=== PATIENT | male | born 1965 | race Hispanic/Latino ===

== ENCOUNTER 2018-08-27 17:58 | Observation (INO) | payer OTHER ==
[2018-08-27] MEDS ORDERED: Sodium Chloride 0.9% 1,000 ML IV STA (18:07)
[2018-08-27] MEDS ORDERED: Morphine 4 MG/ML VIAL IV ONE (18:07)
--- NOTE | 2018-08-27 18:18 | ED PDOC ---
HPI: Chest Pain Time Seen by Provider: 08/27/18 18:06 Chief Complaint (Nursing): Chest Pain Chief Complaint (Provider): Chest Pain, Constipation History Per: Patient History/Exam Limitations: no limitations Onset/Duration Of Symptoms: Intermittent Episodes (x1 month) Current Symptoms Are (Timing): Still Present Additional Complaint(s): 53 year old male presents to the ED for evaluation of acute onset mid-epigastric pain radiating up from his lower abdomen, which he thinks is gas, for the past few hours. Patient notes that he had several episodes of this over the past month which have either spontaneously resolved or were relieved by Pepto-Bismol, last episode last night. Additionally, he reports associated constipation. Otherwise, denies fever, vomiting, cough, shortness of breath, focal weakness, and any other complaints. PMD: unsure of name Past Medical History Reviewed: Historical Data, Nursing Documentation, Vital Signs - Medical History PMH: No Chronic Diseases Other PMH: distant history of TB - Surgical History Surgical History: Cholecystectomy - Family History Family History: States: Unknown Family Hx - Social History Current smoker - smoking cessation education provided: No Alcohol: Social Drugs: Denies - Allergies Allergies/Adverse Reactions: Allergies Allergy/AdvReac Type Severity Reaction Status Date / Time No Known Allergies Allergy Verified 08/27/18 18:03 MELYSSA Risk Score for UA/NSTEMI - MELYSSA Risk Score Age > 64: NO 3 or more CAD Risk Factors: NO Known CAD (Stenosis greater than 50%): NO Aspirin use in past 7 days: NO Severe Angina: NO EKG ST changes greater than 0.5mm: NO Positive Cardiac Marker: NO MELYSSA Score: 0 Risk %: 5% Review of Systems ROS Statement: Except As Marked, All Systems Reviewed And Found Negative Constitutional: Negative for: Fever Cardiovascular: Positive for: Chest Pain (acute mid epigastric pain which radiates up from lower abdomen) Respiratory: Negative for: Cough, Shortness of Breath Gastrointestinal: Positive for: Constipation. Negative for: Vomiting Neurological: Negative for: Weakness Physical Exam - Reviewed Nursing Documentation Reviewed: Yes Vital Signs Reviewed: Yes - Physical Exam Appears: Positive for: Uncomfortable Head Exam: Positive for: ATRAUMATIC, NORMOCEPHALIC Skin: Positive for: Normal Color, Warm. Negative for: Rash Eye Exam: Positive for: Normal appearance, EOMI, PERRL ENT: Positive for: Normal ENT Inspection Neck: Positive for: Normal, Painless ROM, Supple Cardiovascular/Chest: Positive for: Regular Rate, Rhythm, Chest Non Tender Respiratory: Positive for: Normal Breath Sounds. Negative for: Accessory Muscle Use, Respiratory Distress Gastrointestinal/Abdominal: Positive for: Normal Exam, Bowel Sounds, Soft. Negative for: Tenderness (mild midepigastric tenderness), Mass, Distended, Guarding, Rebound Back: Positive for: Normal Inspection Extremity: Positive for: Normal ROM (all extremities) Neurological/Psych: Positive for: Awake, Alert, Oriented (x3). Negative for: Motor/Sensory Deficits - Laboratory Results Result Diagrams: 08/27/18 18:36 08/27/18 18:36 Medical Decision Making Medical Decision Making: Time: 1806 Initial Impression: acute onset of chest and abdominal pain rule out gastritis, constipation, small bowel obstruction Initial Plan: --EKG --CMP --Lipase --Trop I --CBC with differential --CXR --Morphine 4mg IV --Normal saline IV --Pepcid 20mg IVP --Reevaluate Accucheck: [id number] CXR FINDINGS: LUNGS: The lungs are well inflated and clear. PLEURA: No right pleural effusions or pneumothorax. There blunting of the left costophrenic angle. CARDIOVASCULAR: The heart is normal in size. No aortic atherosclerotic calcifications present. OSSEOUS STRUCTURES: Within normal limits for the patient's age. VISUALIZED UPPER ABDOMEN: Normal. OTHER FINDINGS: None. IMPRESSION: No active pulmonary disease. Suspect small left pleural effusion versus pleural thickening. CT FINDINGS: LUNG BASES: The lung bases appear clear. No pleural effusions are seen. LIVER: Unremarkable. GALLBLADDER AND BILE DUCTS: Status post cholecystectomy. There is choledocholithiasis identified in the common bile duct; with the largest choledocholith measuring 1.5 cm. No biliary ductal dilatation is evident. PANCREAS: Unremarkable. SPLEEN: Unremarkable. ADRENAL GLANDS: Unremarkable. KIDNEYS, URETERS, AND BLADDER: The kidneys appear within normal limits. There is no hydronephrosis or hydroureter. No urinary calculi are seen. The urinary bladder appeared normal in size and configuration. STOMACH AND BOWEL: Unremarkable appearance of the stomach and bowel. No evidence of bowel obstruction. No evidence suggesting enteritis or colitis. There is mild diverticulosis coli seen in the sigmoid region without evidence of acute diverticulitis. APPENDIX: No evidence of acute appendicitis on CT examination. PERITONEUM: No free fluid. No free air. LYMPH NODES: No lymphadenopathy is evident. REPRODUCTIVE: The seminal vesicles appeared normal and symmetrical in size. There is prostatic hypertrophy noted. The prostate gland measured 5.5 cm transversely. VASCULATURE: No evidence of abdominal aortic aneurysm. BONES: No aggressive appearing osseous lesion. No acute osseous pathology evident. IMPRESSION: 1. Status post cholecystectomy. 2. Choledocholithiasis is identified as described above. 3. Prostatic hypertrophy. 4. Diverticulosis coli of the sigmoid colon. No acute diverticulitis identified. 2206 Discussed results with patient and answered all questions. Additional pain meds ordered to alleviate symptoms. Dr. Valdovinos pageelpidio. [address] Valdovinos who is director of solutions architecture (pts is in [place])_who is agreeable for admission with a hepatobiliary GI consult dr dominguez. pt agreeable to plan for admission. Scribe Attestation: Documented by Lara Zuluaga, acting as a scribe for Jefry Dhillon MD. Provider Scribe Attestation: All medical record entries made by the Scribe were at my direction and personally dictated by me. I have reviewed the chart and agree that the record accurately reflects my personal performance of the history, physical exam, medical decision making, and the department course for this patient. I have also personally directed, reviewed, and agree with the discharge instructions and disposition. Disposition - Clinical Impression Clinical Impression: Chest pain, Abdominal pain - Patient ED Disposition Is Patient to be Admitted: Yes Counseled Patient/Family Regarding: Studies Performed, Diagnosis - Disposition Disposition Time: 22:05 Condition: STABLE
--- NOTE | 2018-08-27 18:41 | RAD ---
Date of service: 08/27/2018 HISTORY: chest pain COMPARISON: No prior. FINDINGS: LUNGS: The lungs are well inflated and clear. PLEURA: No right pleural effusions or pneumothorax. There blunting of the left costophrenic angle. CARDIOVASCULAR: The heart is normal in size. No aortic atherosclerotic calcifications present. OSSEOUS STRUCTURES: Within normal limits for the patient's age. VISUALIZED UPPER ABDOMEN: Normal. OTHER FINDINGS: None. IMPRESSION: No active pulmonary disease. Suspect small left pleural effusion versus pleural thickening.
[2018-08-27] MEDS ORDERED: Morphine 4 MG/ML VIAL ONE (18:51)
[2018-08-27 19:07] LABS: BASO % 0.3 % (0.0-2.0); EOS # 0.1 K/uL (0.0-0.7); EOS % 0.5 % (0.0-4.0); HEMOGLOBIN 16.3 g/dL (12.0-18.0); LYMPH # 1.3 K/uL (1.0-4.3); LYMPH % 9.6 % (20.0-40.0); MEAN CELL VOLUME 89.1 fl (80.0-94.0); MEAN CORPUSCULAR HEMOGLOBIN 29.7 pg (27.0-31.0); MEAN CORPUSCULAR HGB CONC 33.3 g/dL (33.0-37.0); MEAN PLATELET VOLUME 9.5 fl (7.2-11.7); MONO # 0.9 K/uL (0.0-0.8); MONO % 6.2 % (0.0-10.0); NEUT # 11.5 K/uL (1.8-7.0); NEUT % 83.4 % (50.0-75.0); NRBC % 0.1 % (0.0-0.0); PLATELET COUNT 172 K/uL (130-400); RBC 5.47 Mil/uL (4.40-5.90); RED CELL DISTRIBUTION WIDTH 12.6 % (11.5-14.5); WHITE BLOOD COUNT 13.8 K/uL (4.8-10.8)
[2018-08-27 19:09] LABS: ALB/GLOB RATIO 1.5 (1.0-2.1); ALBUMIN 4.4 g/dL (3.5-5.0); ALT/SGPT 72 U/L (21-72); AST/SGOT 110 U/L (17-59); BLOOD UREA NITROGEN 17 mg/dl (9-20); CALCIUM 9.7 mg/dL (8.4-10.2); GFR NON-AFRICAN AMERICAN > 60; LIPASE 183 U/L (23-300)
[2018-08-27] MEDS ORDERED: Iohexol 300 100 ML IJ ONE (19:41)
[2018-08-27 19:54] LABS: BANDS 2 % (0-2); LYMPHOCYTE 7 % (20-50); MONOCYTE 3 % (0-10); NEUTROPHIL 88 % (42-75); TOTAL CELLS COUNTED 100
[2018-08-27 19:55] LABS: PLATELET ESTIMATE NORMAL (NORMAL)
[2018-08-28] MEDS ORDERED: HYDROmorphone 0.5 mg/0.5 ml ISec IVP PRN (04:31)
--- NOTE | 2018-08-28 04:33 | CP.PCM.CON ---
<MineshleifNick lockett - Last Filed: 08/28/18 07:15> History of Present Illness - History of Present Illness History of Present Illness: [facility] Surgery Consult Note for Dr. Jensen Reason for consult: choledolcholithiasis 53M with PMH of laparoscopic cholecystectomy and ERCP with stent presents to [facility] for complaint of abd pain. Patient was seen and evaluated in the ED. Patient states pain began about 2 days ago. He states that it was intially related to food. Denies fever/chills or vomiting but admits to nausea. Patient had lap uri 12 years ago in [place]. prior to the procedure, he had ERCP with stent placement. A few years later, patient reports to having abd pain and an "infection." He received abx and it resolved. he has had intermittent episodes in the past. He rate pain as moderate located in epigastrium. He tried pepto-bismol which provided minimal relief. Patient has no other complaint at this time. 12 point ROS was performed and negative unless otherwise stated. PMH: cholecystitis, choelithiasis PSH: ERCp with stent, lap uri ALL: NKDA Review of Systems - Review of Systems All systems: reviewed and no additional remarkable complaints except (as per HPI) Past Patient History - Past Social History Alcohol: Social Drugs: Denies - PSYCHIATRIC Hx Substance Use: No - SURGICAL HISTORY Hx Cholecystectomy: Yes - ANESTHESIA Hx Anesthesia: Yes Meds Allergies/Adverse Reactions: Allergies Allergy/AdvReac Type Severity Reaction Status Date / Time No Known Allergies Allergy Verified 08/27/18 18:03 - Medications Medications: Current Medications Hydromorphone HCl (Dilaudid) 0.5 mg IVP Q3H PRN PRN Reason: Pain, severe (8-10) Lactated Ringer's (Lactated Ringer's) 1,000 mls @ 130 mls/hr IV .Q7H42M JOB Ketorolac Tromethamine (Toradol) 15 mg IVP Q6 PRN PRN Reason: Pain, moderate (4-7) Ondansetron HCl (Zofran Inj) 4 mg IVP Q6 PRN PRN Reason: Nausea/Vomiting Pantoprazole Sodium (Protonix Inj) 40 mg IVP DAILY JOB Physical Exam - Constitutional Appears: No Acute Distress - Head Exam Head Exam: ATRAUMATIC, NORMOCEPHALIC - Eye Exam Eye Exam: EOMI, Normal appearance. absent: Scleral icterus Pupil Exam: PERRL - ENT Exam ENT Exam: Mucous Membranes Moist - Respiratory Exam Respiratory Exam: NORMAL BREATHING PATTERN - Cardiovascular Exam Cardiovascular Exam: REGULAR RHYTHM - GI/Abdominal Exam GI & Abdominal Exam: Normal Bowel Sounds, Soft, Tenderness (epigastrium). absent: Distended, Firm, Guarding, Hernia, Rebound, Rigid - Extremities Exam Extremities exam: Positive for: normal capillary refill, pedal pulses present - Back Exam Back exam: absent: CVA tenderness (L), CVA tenderness (R) - Neurological Exam Neurological exam: Alert, CN II-XII Intact, Oriented x3 - Psychiatric Exam Psychiatric exam: Normal Affect, Normal Mood - Skin Skin Exam: Dry, Intact, Normal Color, Warm Results - Vital Signs Recent Vital Signs: Last Vital Signs Temp 98.3 F 08/28/18 01:14 Pulse 96 H 08/28/18 01:14 Resp 17 08/28/18 01:14 BP 142/78 08/28/18 01:14 Pulse Ox 96 08/28/18 01:14 - Labs Result Diagrams: 08/28/18 06:18 08/28/18 06:18 Labs: Laboratory Results - last 24 hr 08/27/18 08/27/18 08/27/18 18:02 18:36 18:36 WBC 13.8 H RBC 5.47 Hgb 16.3 Hct 48.7 MCV 89.1 MCH 29.7 MCHC 33.3 RDW 12.6 Plt Count 172 MPV 9.5 Neut % (Auto) 83.4 H Lymph % (Auto) 9.6 L Berks % (Auto) 6.2 Eos % (Auto) 0.5 Baso % (Auto) 0.3 Neut # (Auto) 11.5 H Lymph # (Auto) 1.3 Berks # (Auto) 0.9 H Eos # (Auto) 0.1 Baso # (Auto) 0.0 Neutrophils % (Manual) 88 H Band Neutrophils % 2 Lymphocytes % (Manual) 7 L Monocytes % (Manual) 3 Platelet Estimate Normal Sodium 135 Potassium 3.7 Chloride 100 Carbon Dioxide 21 L Anion Gap 18 BUN 17 Creatinine 0.7 L Est GFR ( Amer) > 60 Est GFR (Non-Af Amer) > 60 POC Glucose (mg/dL) 139 H Random Glucose 144 H Calcium 9.7 Total Bilirubin 2.1 H AST 110 H ALT 72 Alkaline Phosphatase 85 Troponin I < 0.0120 Total Protein 7.4 Albumin 4.4 Globulin 3.0 Albumin/Globulin Ratio 1.5 Lipase 183 Assessment & Plan - Assessment and Plan (Free Text) Assessment: 53M with abd pain and CT findings suggestive of choledolcholithiasis Plan: -NPO -recommend GI consult -patient will need ERCP -IVF -pain control -anti-emetics prn -Further recommendations as per Dr. Haynes PGY2 - Date & Time Date: 08/28/18 Time: 03:35 <Dany Chanel - Last Filed: 08/28/18 09:08> Meds - Medications Medications: Current Medications Hydromorphone HCl (Dilaudid) 0.5 mg IVP Q3H PRN PRN Reason: Pain, severe (8-10) Lactated Ringer's (Lactated Ringer's) 1,000 mls @ 130 mls/hr IV .Q7H42M JOB Last Admin: 08/28/18 07:25 Dose: 130 mls/hr Ketorolac Tromethamine (Toradol) 15 mg IVP Q6 PRN PRN Reason: Pain, moderate (4-7) Ondansetron HCl (Zofran Inj) 4 mg IVP Q6 PRN PRN Reason: Nausea/Vomiting Pantoprazole Sodium (Protonix Inj) 40 mg IVP DAILY JOB Results - Vital Signs Recent Vital Signs: Last Vital Signs Temp 98.3 F 08/28/18 01:14 Pulse 96 H 08/28/18 01:14 Resp 17 08/28/18 01:14 BP 142/78 08/28/18 01:14 Pulse Ox 96 08/28/18 01:14 - Labs Result Diagrams: 08/28/18 06:18 08/28/18 06:18 Labs: Laboratory Results - last 24 hr 08/27/18 08/27/18 08/27/18 18:02 18:36 18:36 WBC 13.8 H RBC 5.47 Hgb 16.3 Hct 48.7 MCV 89.1 MCH 29.7 MCHC 33.3 RDW 12.6 Plt Count 172 MPV 9.5 Neut % (Auto) 83.4 H Lymph % (Auto) 9.6 L Berks % (Auto) 6.2 Eos % (Auto) 0.5 Baso % (Auto) 0.3 Neut # (Auto) 11.5 H Lymph # (Auto) 1.3 Berks # (Auto) 0.9 H Eos # (Auto) 0.1 Baso # (Auto) 0.0 Neutrophils % (Manual) 88 H Band Neutrophils % 2 Lymphocytes % (Manual) 7 L Monocytes % (Manual) 3 Platelet Estimate Normal Sodium 135 Potassium 3.7 Chloride 100 Carbon Dioxide 21 L Anion Gap 18 BUN 17 Creatinine 0.7 L Est GFR ( Amer) > 60 Est GFR (Non-Af Amer) > 60 POC Glucose (mg/dL) 139 H Random Glucose 144 H Calcium 9.7 Phosphorus Magnesium Total Bilirubin 2.1 H AST 110 H ALT 72 Alkaline Phosphatase 85 Troponin I < 0.0120 Total Protein 7.4 Albumin 4.4 Globulin 3.0 Albumin/Globulin Ratio 1.5 Lipase 183 08/28/18 08/28/18 06:18 06:18 WBC 13.5 H RBC 5.18 Hgb 15.8 Hct 45.2 MCV 87.4 MCH 30.6 MCHC 35.0 RDW 12.1 Plt Count 155 MPV 8.8 Neut % (Auto) 85.6 H Lymph % (Auto) 6.1 L Berks % (Auto) 7.4 Eos % (Auto) 0.5 Baso % (Auto) 0.4 Neut # (Auto) 11.6 H Lymph # (Auto) 0.8 L [place] # (Auto) 1.0 H Eos # (Auto) 0.1 Baso # (Auto) 0.0 Neutrophils % (Manual) Band Neutrophils % Lymphocytes % (Manual) Monocytes % (Manual) Platelet Estimate Sodium 134 Potassium 4.0 Chloride 99 Carbon Dioxide 28 Anion Gap 11 BUN 14 Creatinine 0.8 Est GFR ( Amer) > 60 Est GFR (Non-Af Amer) > 60 POC Glucose (mg/dL) Random Glucose 115 H Calcium 9.3 Phosphorus 3.2 Magnesium 2.0 Total Bilirubin 3.9 H AST 196 H D ALT 199 H D Alkaline Phosphatase 97 Troponin I Total Protein 6.9 Albumin 4.1 Globulin 2.7 Albumin/Globulin Ratio 1.5 Lipase Assessment & Plan - Assessment and Plan (Free Text) Plan: All medical record entries made by the resident were at my direction. I have reviewed the chart and agree that the record accurately reflects my personal pe rformance of the history, physical exam, and medical decision making. Patient post laparoscopic cholecystectomy, now with choledocholithiasis. Common duct measures 19 mm with 2-3 retained stones. Patient should undergo ERCP and attempted removal of stones. If unsuccessful, can perform laparoscopic common duct exploration with choledochoscopy. Question becomes whether patient will need choledochoduodenostomy, if there is a distal stricture.
[2018-08-28] MEDS ORDERED: Lactated Ringer's 1,000 ML IV SCH (04:45)
[2018-08-28 06:21] LABS: BASO % 0.4 % (0.0-2.0); EOS # 0.1 K/uL (0.0-0.7); EOS % 0.5 % (0.0-4.0); HEMOGLOBIN 15.8 g/dL (12.0-18.0); LYMPH # 0.8 K/uL (1.0-4.3); LYMPH % 6.1 % (20.0-40.0); MEAN CELL VOLUME 87.4 fl (80.0-94.0); MEAN CORPUSCULAR HEMOGLOBIN 30.6 pg (27.0-31.0); MEAN PLATELET VOLUME 8.8 fl (7.2-11.7); MONO % 7.4 % (0.0-10.0); NEUT # 11.6 K/uL (1.8-7.0); NEUT % 85.6 % (50.0-75.0); RBC 5.18 Mil/uL (4.40-5.90); RED CELL DISTRIBUTION WIDTH 12.1 % (11.5-14.5); WHITE BLOOD COUNT 13.5 K/uL (4.8-10.8)
[2018-08-28 06:35] LABS: ALB/GLOB RATIO 1.5 (1.0-2.1); ALBUMIN 4.1 g/dL (3.5-5.0); ALT/SGPT 199 U/L (21-72); AST/SGOT 196 U/L (17-59); BLOOD UREA NITROGEN 14 mg/dl (9-20); CALCIUM 9.3 mg/dL (8.4-10.2); GFR NON-AFRICAN AMERICAN > 60
--- NOTE | 2018-08-28 08:20 | CARD ---
APPROVED REPORT Date of service: 08/27/2018 EKG Measurement Heart [id number] <Conclusion> Normal sinus rhythm Incomplete right bundle branch block Borderline ECG
[2018-08-28] MEDS ORDERED: Sodium Chloride 0.9% 10 ML IV ONE (10:21)
--- NOTE | 2018-08-28 12:01 | CT ---
Date of service: 08/27/2018 PROCEDURE: CT Abdomen and Pelvis with contrast HISTORY: abd pain diffuse COMPARISON: Not available TECHNIQUE: Contrast dose: 95 mL Omnipaque 300 Radiation dose: Total exam DLP = 697.96 mGy-cm. This CT exam was performed using one or more of the following dose reduction techniques: Automated exposure control, adjustment of the mA and/or kV according to patient size, and/or use of iterative reconstruction technique. FINDINGS: LOWER THORAX: Unremarkable. LIVER: Normal size, contour and attenuation. There is intrahepatic biliary ductal dilatation. Several punctate calcifications are seen at the dome of the right hepatic lobe common nonspecific. There is no mass. Grossly normal attenuation. GALLBLADDER AND BILE DUCTS: Status post cholecystectomy. Dilated common bile duct up to 16 mm diameter. There are 2 peripherally calcified stones seen within the common bile duct measuring approximately 1.7 and 0.7 cm, respectively. PANCREAS: Unremarkable. No gross lesion or ductal dilatation. SPLEEN: Mild splenomegaly. The spleen measures approximately 15 cm in greatest dimension. ADRENALS: Unremarkable. No mass. KIDNEYS AND URETERS: Unremarkable. No hydronephrosis. No solid mass. VASCULATURE: Unremarkable. No aortic aneurysm. No aortic atherosclerotic calcification or mural plaque present. BOWEL: Unremarkable. No obstruction. No gross mural thickening. APPENDIX: Normal appendix. PERITONEUM: Unremarkable. No free fluid. No free air. LYMPH NODES: Unremarkable. No enlarged lymph nodes. BLADDER: Unremarkable. REPRODUCTIVE: Normal prostate BONES: No acute fracture. OTHER FINDINGS: None. IMPRESSION: Two obstructing calculi in the common bile duct, largest 17 mm. Intra and extrahepatic biliary ductal dilatation. Status post cholecystectomy. The preliminary findings for this examination were reported by [facility] at 9:47 p.m. on 08/27/2018. There is concurrence of this report with the preliminary findings.
[2018-08-28 19:04] VITALS: BP 132/70; PULSE 80; RESP 15; TEMP 98; O2SAT 100
--- NOTE | 2018-08-29 05:57 | HP ---
HISTORY OF PRESENT ILLNESS: This is a 53-year-old male with history of laparoscopic cholecystectomy 10 years ago, presented to emergency room with upper abdominal pain that has been progressive over the last week. The patient was evaluated in the emergency room, and he was found to have choledocholithiasis associated with increased bilirubin. The patient was started on IV fluids, kept n.p.o. and admitted for further management. Other review of systems is negative. ALLERGIES: NO KNOWN ALLERGY. MEDICATIONS: None. PAST MEDICAL HISTORY: Laparoscopic cholecystectomy. SOCIAL HISTORY: Denied smoking, EtOH or substance abuse. FAMILY HISTORY: Noncontributory. PHYSICAL EXAMINATION: GENERAL: The patient is in bed, not in any cardiopulmonary distress at the time of this examination. VITAL SIGNS: With a blood pressure of 136/68, temperature 98.3, respiratory rate 16, and pulse 78. HEENT: Pupils equal and reactive to light. Normal-appearing mucosa of the conjunctivae, oropharynx and nasal membrane mucosa. NECK: Supple. No JVD. No carotid bruit. No lymph node. No thyromegaly. CHEST AND LUNGS: Bilateral symmetrical expansion. Good air exchange. No rales. No rhonchi. CARDIOVASCULAR SYSTEM: PMI not localized. S1 and S2. No additional sounds. ABDOMEN: Normoactive bowel sounds. No tenderness. No organomegaly. No masses. EXTREMITIES: No cyanosis, no clubbing and no edema. CENTRAL NERVOUS SYSTEM: Alert, awake, oriented x3. No neurological deficit could be appreciated. ASSESSMENT: 1. Choledocholithiasis with a picture of obstructive jaundice. 2. Status post cholecystectomy. Less likely, the patient has ascending cholangitis as there is no fever or abdominal pain at the time of this examination. PLAN: The patient is started on IV antibiotics. GI consult. Surgical consult. Follow their recommendations. Antibiotics were ordered empirically by Gastroenterology. The patient is scheduled for ERCP by GI. Bharathi Vladovinos MD
--- NOTE | 2018-08-29 07:44 | CON ---
DATE: 08/28/2018 REFERRING DOCTOR: Dr. Valdovinos. REASON FOR CONSULTATION: Abdominal pain. HISTORY OF PRESENT ILLNESS: This is a 53-year-old man who had complaints of abdominal pain and discomfort for the last couple of days, radiated to the back. No fever. No chills. According to the patient, he had years ago. The patient's pain has since resolved after being here. Denies any fever, chills, nausea, vomiting. Currently lying in bed comfortable, in no apparent distress. PAST MEDICAL HISTORY: As above. PAST SURGICAL HISTORY: As above. MEDICATIONS: Have been reviewed. REVIEW OF SYSTEMS: All other systems have been reviewed and negative apart from the HPI. PHYSICAL EXAMINATION: VITAL SIGNS: Here in the hospital are grossly unremarkable. GENERAL: A very pleasant elderly-appearing man, lying in bed comfortable, in no apparent distress. HEENT: Head: Normocephalic and atraumatic. Eyes: Pupils are equal and reactive to light bilaterally. No conjunctival pallor or icterus. NECK: Supple. Normal range of motion. No lymph nodes appreciated. LUNGS: Coarse breath sounds bilaterally. HEART: S1 and S2, regular rate and rhythm. No murmurs appreciated. ABDOMEN: Soft. Some discomfort. Bowel sounds present. No rebound. No guarding. EXTREMITIES: Pulse present bilaterally. SKIN: Warm, dry and intact. NEUROLOGICAL: Alert and oriented x3. LABORATORY DATA: Labs and radiology have been reviewed. WBC is 13.5. Hemoglobin is stable. Total bili is 3.9. AST and ALT 116 [address]. CAT scan shows two large stones in the CBD, 1.7 largest in diameter with stone. ASSESSMENT AND PLAN: This is a 53-year-old male with retained common bile duct stone. We will plan LFTs in the morning. Antibiotics for now. ERCP to follow. Thank you for the consult. Edson Mckeon MD/ PhD cc: Dr. Valdovinos. [facility]
[2018-08-29] MEDS ORDERED: levoFLOXacin 500 mg in D5W 500 MG/100 ML BAG IVPB SCH (09:00)
[2018-08-29] MEDS ORDERED: Indomethacin 50 MG Suppository PR ONE ×2 (11:08→12:30)
[2018-08-29] MEDS ORDERED: Glucagon Recombinant 1 mg Inj ONE (11:08)
[2018-08-29] MEDS ORDERED: Iohexol 240 (50 ml) ONE (11:08)
--- NOTE | 2018-08-30 01:09 | DS ---
REASON FOR ADMISSION: This is a 53-year-old male with history of cholecystectomy who was admitted for obstructive jaundice secondary to choledocholithiasis. COURSE OF HOSPITALIZATION: The patient was admitted to medical floor, and he had a GI consultation done by Dr. Mckeon as well as a surgical consultation done by Dr. Jensen. The patient was scheduled to have an ERCP, but the patient felt that he is asymptomatic. He signed against medical advice and stated that he will go to private medical physician. The patient was alert, awake and oriented x3 at the time of his signature, and he was explained the consequences of the decision and the possibility of worsening of his condition leading to infection, sepsis and . FINAL DIAGNOSES: Choledocholithiasis, status post cholecystectomy. [facility] MD Bonifacio
== END 2018-08-28 18:45 | disposition left against medical advice (07) ==
LOC: H.ER 17:58 → H.ERHOLD 22:06
PROVIDERS: ADMIT Internal Medicine; ATTEND Internal Medicine
DX: K80.50 Calculus of bile duct without cholangitis or cholecystitis without obstruction (principal); Z98.890 Other specified postprocedural states; K59.00 Constipation, unspecified; N40.0 Benign prostatic hyperplasia without lower urinary tract symptoms; Z86.11 Personal history of tuberculosis; Z90.49 Acquired absence of other specified parts of digestive tract
CPT/HCPCS: 71045; 74177; 80053; 82948; 83690; 83735; 84100; 84484; 85025; 93005; 96374; 99284; C9113; G0378; J1885; J2270; J7030; J7120; Q9967